=== PATIENT | female | born 1995 | race Caucasian/White ===

== ENCOUNTER 2017-09-17 07:29 | Emergency (ER) | payer MEDICAID ==
[~2017-09-17] VITALS: Ht 160 cm; Wt 64.0 kg
[~2017-09-17 07:29] MED LIST: CEPH500C5 PO; CYCL-1 PO; FAMO-129; IBUP-1985 PO; LIDO700A5 TOP; NITR100C6 PO; NORE-39 PO; ONDA4TAB6 PO; PHEN-873 PO
[2017-09-17 08:12] LABS: URINE HCG NEGATIVE (NEG)
[2017-09-17] MEDS ORDERED: HYDROcodone/acetaminophen 5mg/325mg tablet PO ONE (08:15)
[2017-09-17 08:20] LABS: CLARITY,URINE CLOUDY (Clear); COLOR,URINE YELLOW (Yellow); GLUCOSE, URINE NEGATIVE (Neg); KETONES,URINE NEGATIVE (Neg); LEUKOCYTE ESTERASE ,URINE MODERATE (Neg); NITRITES, URINE NEGATIVE (Neg); OCCULT BLOOD,URINE LARGE (Neg); PH,URINE 5.5 (4.8-8.0); PROTEIN,URINE 30 mg/dl (Neg); UROBILINOGEN,URINE 0.2 E.U/dL (0.2-1.0)
[2017-09-17 08:26] LABS: UA COLLECTION TYPE CLN CATCH MIDSTREAM; WBC,URINE TNTC /HPF (0-4)
[2017-09-17 08:27] LABS: BACTERIA,URINE FEW /HPF (Neg); SQUAMOUS EPITHELIAL CELL,UR MODERATE /LPF (FEW)
[2017-09-17 08:28] LABS: MUCUS STRANDS FEW /LPF (Neg)
[2017-09-17] MEDS ORDERED: ondansetron 4mg rapidly disintigrating tab PO ONE (10:00)
[2017-09-17 10:26] VITALS: BP 112/58
[2017-09-17] MEDS ORDERED: HYDR-3965 PO (10:38)
[2017-09-17] MEDS ORDERED: CIPR-230 PO (10:38)
[2017-09-17] MEDS ORDERED: cefTRIAXone 1g/NS 100ml IVPB 100 ML IV ONE (10:40)
== END 2017-09-17 11:32 | disposition home or self-care (01) ==
LOC: ER 07:30
DX: N10 Acute pyelonephritis (principal); F12.10 Cannabis abuse, uncomplicated; G89.29 Other chronic pain; Z79.899 Other long term (current) drug therapy; Z88.2 Allergy status to sulfonamides
CPT/HCPCS: 76775; 81001; 81025; 87088; 96365; 99285; J0696; 96374

== ENCOUNTER 2018-04-20 20:00 | Emergency (ER) | payer MEDICAID ==
[~2018-04-20] VITALS: Ht 160 cm; Wt 70.7 kg
[~2018-04-20 20:00] MED LIST changes: -CEPH500C5 PO
[2018-04-20 21:08] LABS: BASOPHILS % (AUTO) 0.1 % (0-1); EOSINOPHILS # (AUTO) 0.2 X10'3 (0-0.9); EOSINOPHILS % (AUTO) 1.7 % (0-6); HEMATOCRIT 40.8 % (35.0-45.0); HEMOGLOBIN 14.1 g/dl (12.0-16.0); LYMPHOCYTES % (AUTO) 20.2 % (21-51); MEAN CORPUSCULAR HEMOGLOBIN 30.3 PG (27.0-31.0); MEAN CORPUSCULAR HGB CONC 34.6 % (33.0-36.5); MEAN CORPUSCULAR VOLUME 87.5 FL (78-98); MEAN PLATELET VOLUME 7.7 FL (7.4-10.4); MONOCYTES # (AUTO) 0.7 X10'3 (0-0.9); MONOCYTES % (AUTO) 7.1 % (2-12); NEUTROPHILS % (AUTO) 70.9 % (42-75); PLATELET COUNT 279 X10'3 (140-440); RED BLOOD COUNT 4.67 X10'6 (4.20-5.60); RED CELL DISTRIBUTION WIDTH 12.5 % (11.5-14.5); WHITE BLOOD COUNT 9.9 X10'3 (4.5-11.0)
[2018-04-20 21:32] LABS: D-DIMER 0.27 MG/L FEU (0-0.50); PARTIAL THROMBOPLASTIN TIME 27 SECONDS (22-32)
[2018-04-20 21:36] LABS: ALANINE AMINOTRANSFERASE 27 U/L (12-78); ALBUMIN 4.2 G/DL (3.4-5.0); ALBUMIN/GLOBULIN RATIO 1.2 (1.1-1.5); ALKALINE PHOSPHATASE 62 IU/L (20-180); ANION GAP 10 (8-16); ASPARTATE AMINO TRANSFERASE 16 U/L (10-37); BILIRUBIN,TOTAL 0.3 MG/DL (0.1-1.0); BLOOD UREA NITROGEN 12 MG/DL (7-18); CALCIUM 9.2 MG/DL (8.5-10.1); CHLORIDE 103 MMOL/L (99-107); GLUCOSE 89 MG/DL (70-104); SODIUM 139 MMOL/L (135-145); TOTAL CARBON DIOXIDE 25.9 MMOL/L (24-32); TOTAL PROTEIN 7.8 G/DL (6.4-8.2); eGFR > 90 ML/MIN
[2018-04-20 21:52] VITALS: BP 109/70
== END 2018-04-20 21:53 | disposition home or self-care (01) ==
LOC: ER 20:01
DX: R07.89 Other chest pain (principal); F41.9 Anxiety disorder, unspecified; G89.29 Other chronic pain; F12.90 Cannabis use, unspecified, uncomplicated; F17.200 Nicotine dependence, unspecified, uncomplicated; Z88.2 Allergy status to sulfonamides; Z79.899 Other long term (current) drug therapy
CPT/HCPCS: 36415; 71045; 80053; 84484; 85025; 85379; 85610; 85730; 93005; 99285

== ENCOUNTER 2018-08-03 23:18 | Emergency (ER) | payer MEDICAID ==
[~2018-08-03] VITALS: Ht 162.6 cm; Wt 70.0 kg
[~2018-08-03 23:18] MED LIST changes: +PHEN-786 PO; -PHEN-873 PO
[2018-08-03 23:20] VITALS: BP 123/96
[2018-08-03 23:39] LABS: BASOPHILS % (AUTO) 0.2 % (0-1); EOSINOPHILS # (AUTO) 0.1 X10'3 (0-0.9); EOSINOPHILS % (AUTO) 0.8 % (0-6); HEMATOCRIT 44.2 % (35.0-45.0); HEMOGLOBIN 14.9 g/dl (12.0-16.0); LYMPHOCYTES # (AUTO) 2.9 X10'3 (1.1-4.8); LYMPHOCYTES % (AUTO) 22.7 % (21-51); MEAN CORPUSCULAR HEMOGLOBIN 29.7 PG (27.0-31.0); MEAN CORPUSCULAR HGB CONC 33.8 % (33.0-36.5); MEAN CORPUSCULAR VOLUME 87.7 FL (78-98); MEAN PLATELET VOLUME 7.4 FL (7.4-10.4); MONOCYTES % (AUTO) 7.7 % (2-12); NEUTROPHILS # (AUTO) 8.8 X10'3 (1.8-7.7); NEUTROPHILS % (AUTO) 68.6 % (42-75); PLATELET COUNT 361 X10'3 (140-440); RED BLOOD COUNT 5.04 X10'6 (4.20-5.60); RED CELL DISTRIBUTION WIDTH 12.9 % (11.5-14.5); WHITE BLOOD COUNT 12.8 X10'3 (4.5-11.0)
[2018-08-03] MEDS ORDERED: morphine 4 MG/ML inj SYRINge IV PRN (23:50)
[2018-08-03] MEDS ORDERED: ondansetron/PF 4mg/2ml inj IV ONE (23:50)
[2018-08-03] MEDS ORDERED: normal saline 1000ML IV soln IVB ONE (23:50)
[2018-08-03 23:53] LABS: PROTHROMBIN TIME 10.1 SECONDS (9.0-12.0)
[2018-08-03 23:55] LABS: ALANINE AMINOTRANSFERASE 25 U/L (12-78); ALBUMIN 4.8 G/DL (3.4-5.0); ALBUMIN/GLOBULIN RATIO 1.2 (1.1-1.5); ALKALINE PHOSPHATASE 72 IU/L (20-180); AMYLASE 74 U/L (25-115); ANION GAP 11 (8-16); ASPARTATE AMINO TRANSFERASE 14 U/L (10-37); BILIRUBIN,TOTAL 0.5 MG/DL (0.1-1.0); BLOOD UREA NITROGEN 11 MG/DL (7-18); BUN/CREATININE RATIO 15.3 (6.6-38.0); CALCIUM 9.9 MG/DL (8.5-10.1); CHLORIDE 103 MMOL/L (99-107); CREATININE 0.72 MG/DL (0.40-0.90); GLUCOSE 94 MG/DL (70-104); LIPASE 108 U/L (73-393); POTASSIUM 3.9 MMOL/L (3.5-5.1); SODIUM 140 MMOL/L (135-145); TOTAL CARBON DIOXIDE 26.1 MMOL/L (24-32); TOTAL PROTEIN 8.8 G/DL (6.4-8.2); eGFR > 90 ML/MIN
[2018-08-04 00:19] LABS: URINE HCG NEGATIVE (NEG)
[2018-08-04 00:26] LABS: CLARITY,URINE CLEAR (Clear); COLOR,URINE YELLOW (Yellow); GLUCOSE, URINE NEGATIVE (Neg); KETONES,URINE TRACE mg/dl (Neg); LEUKOCYTE ESTERASE ,URINE NEGATIVE (Neg); NITRITES, URINE NEGATIVE (Neg); OCCULT BLOOD,URINE MODERATE (Neg); PROTEIN,URINE NEGATIVE (Neg); UROBILINOGEN,URINE 0.2 E.U/dL (0.2-1.0)
[2018-08-04 00:29] LABS: UA COLLECTION TYPE CLN CATCH MIDSTREAM
[2018-08-04 00:44] LABS: BACTERIA,URINE 3+ /HPF (Neg); WBC,URINE 0-4 /HPF (0-4)
[2018-08-04 00:45] LABS: MUCUS STRANDS MANY /LPF (Neg); SQUAMOUS EPITHELIAL CELL,UR MODERATE /LPF (FEW)
[2018-08-04] MEDS ORDERED: CefTRIAXone/D5W-Rocephin 1gm 50 ML IV ONE (01:20)
[2018-08-04] MEDS ORDERED: CIPR-230 PO (01:22)
[2018-08-05 08:15] LABS: H PYLORI ANTIBODY NEGATIVE (Neg)
== END 2018-08-04 02:00 | disposition home or self-care (01) ==
LOC: ER 23:18
DX: N12 Tubulo-interstitial nephritis, not specified as acute or chronic (principal); R19.7 Diarrhea, unspecified; R10.13 Epigastric pain; R00.0 Tachycardia, unspecified; F12.90 Cannabis use, unspecified, uncomplicated; Z88.2 Allergy status to sulfonamides; Z79.899 Other long term (current) drug therapy; Z87.440 Personal history of urinary (tract) infections
CPT/HCPCS: 36415; 74176; 80053; 81001; 81025; 82150; 83690; 85025; 85610; 86677; 96361; 96365; 96375; 99284; J0696; J2270; J2405; J7030

== ENCOUNTER 2019-04-17 15:31 | Emergency (ER) | payer MEDICAID ==
[~2019-04-17] VITALS: Ht 162.6 cm; Wt 67.0 kg
[2019-04-17 15:32] VITALS: BP 129/79
[2019-04-17 16:28] LABS: CLARITY,URINE CLOUDY (Clear); COLOR,URINE YELLOW (Yellow); GLUCOSE, URINE NEGATIVE (Neg); KETONES,URINE NEGATIVE (Neg); LEUKOCYTE ESTERASE ,URINE NEGATIVE (Neg); NITRITES, URINE POSITIVE (Neg); OCCULT BLOOD,URINE TRACE-INTACT (Neg); PH,URINE 5.5 (4.8-8.0); PROTEIN,URINE TRACE mg/dl (Neg); UROBILINOGEN,URINE 0.2 E.U/dL (0.2-1.0)
[2019-04-17 16:29] LABS: UA COLLECTION TYPE CLN CATCH MIDSTREAM; URINE HCG NEGATIVE (NEG)
[2019-04-17] MEDS ORDERED: METH500T PO (16:32)
[2019-04-17] MEDS ORDERED: NITR100C6 PO (16:32)
[2019-04-17] MEDS ORDERED: ketorolac tromethamine 15mg/ml inj. IM ONE (16:35)
[2019-04-17 16:41] LABS: SQUAMOUS EPITHELIAL CELL,UR MANY /LPF (FEW)
[2019-04-17 16:42] LABS: MUCUS STRANDS MANY /LPF (Neg)
[2019-04-17 16:43] LABS: TRANSITIONAL EPI CELLS,URINE FEW /HPF
[2019-04-17 16:44] LABS: BACTERIA,URINE 4+ /HPF (Neg); RBC,URINE 0-2 /HPF (0-2); WBC,URINE 0-4 /HPF (0-4)
== END 2019-04-17 17:00 | disposition home or self-care (01) ==
LOC: ER 15:32
DX: S29.012A Strain of muscle and tendon of back wall of thorax, initial encounter (principal); N39.0 Urinary tract infection, site not specified; G89.29 Other chronic pain; F41.9 Anxiety disorder, unspecified; F12.90 Cannabis use, unspecified, uncomplicated; Z88.2 Allergy status to sulfonamides; Z79.899 Other long term (current) drug therapy; X58.XXXA Exposure to other specified factors, initial encounter; Y93.89 Activity, other specified; Y92.89 Other specified places as the place of occurrence of the external cause; Y99.8 Other external cause status
CPT/HCPCS: 81001; 81025; 96372; 99283; J1885

== ENCOUNTER 2019-05-21 14:24 | Emergency (ER) | payer MEDICAID ==
[~2019-05-21] VITALS: Ht 160 cm; Wt 67.7 kg
[~2019-05-21 14:24] MED LIST changes: +METH500T PO
[2019-05-21 14:59] VITALS: BP 156/94
[2019-05-21 15:49] LABS: CLARITY,URINE SLIGHTLY CLOUDY (Clear); COLOR,URINE YELLOW (Yellow); GLUCOSE, URINE NEGATIVE (Neg); KETONES,URINE NEGATIVE (Neg); LEUKOCYTE ESTERASE ,URINE NEGATIVE (Neg); NITRITES, URINE NEGATIVE (Neg); OCCULT BLOOD,URINE LARGE (Neg); PROTEIN,URINE NEGATIVE (Neg); URINE HCG NEGATIVE (NEG); UROBILINOGEN,URINE 0.2 E.U/dL (0.2-1.0)
[2019-05-21 15:50] LABS: UA COLLECTION TYPE CLN CATCH MIDSTREAM
[2019-05-21 15:57] LABS: BASOPHILS % (AUTO) 0.4 % (0-1); EOSINOPHILS # (AUTO) 0.1 X10'3 (0-0.9); EOSINOPHILS % (AUTO) 0.8 % (0-6); HEMOGLOBIN 14.3 g/dl (12.0-16.0); LYMPHOCYTES # (AUTO) 2.2 X10'3 (1.1-4.8); LYMPHOCYTES % (AUTO) 23.2 % (21-51); MEAN CORPUSCULAR VOLUME 88.3 FL (78-98); MEAN PLATELET VOLUME 7.8 FL (7.4-10.4); MONOCYTES # (AUTO) 0.7 X10'3 (0-0.9); MONOCYTES % (AUTO) 7.5 % (2-12); NEUTROPHILS # (AUTO) 6.6 X10'3 (1.8-7.7); NEUTROPHILS % (AUTO) 68.1 % (42-75); PLATELET COUNT 294 X10'3 (140-440); RED BLOOD COUNT 4.75 X10'6 (4.20-5.60); RED CELL DISTRIBUTION WIDTH 12.9 % (11.5-14.5); WHITE BLOOD COUNT 9.6 X10'3 (4.5-11.0)
[2019-05-21] MEDS ORDERED: ketorolac trometh inj. 60 MG/2 ML VIAL IM ONE (16:00)
[2019-05-21] MEDS ORDERED: acetaminophen 325mg tablet PO ONE (16:00)
[2019-05-21 16:02] LABS: SQUAMOUS EPITHELIAL CELL,UR MANY /LPF (FEW)
[2019-05-21 16:03] LABS: MUCUS STRANDS MODERATE /LPF (Neg)
[2019-05-21 16:04] LABS: RBC,URINE 0-2 /HPF (0-2); WBC,URINE 0-4 /HPF (0-4)
[2019-05-21 16:05] LABS: BACTERIA,URINE 1+ /HPF (Neg)
[2019-05-21 16:06] LABS: CAL OXALATE CRYSTALS FEW /HPF (NEGATIVE)
[2019-05-21 16:20] LABS: ALANINE AMINOTRANSFERASE 28 U/L (12-78); ALBUMIN 4.4 G/DL (3.4-5.0); ALBUMIN/GLOBULIN RATIO 1.1 (1.1-1.5); ALKALINE PHOSPHATASE 45 IU/L (46-116); ANION GAP 12 (8-16); ASPARTATE AMINO TRANSFERASE 18 U/L (10-37); BILIRUBIN,TOTAL 0.3 MG/DL (0.1-1.0); BLOOD UREA NITROGEN 11 MG/DL (7-18); BUN/CREATININE RATIO 17.7 (6.6-38.0); CALCIUM 9.5 MG/DL (8.5-10.1); CHLORIDE 104 MMOL/L (99-107); CREATININE 0.62 MG/DL (0.40-0.90); GLUCOSE 80 MG/DL (70-104); POTASSIUM 3.8 MMOL/L (3.5-5.1); SODIUM 141 MMOL/L (135-145); TOTAL CARBON DIOXIDE 25.1 MMOL/L (24-32); TOTAL PROTEIN 8.3 G/DL (6.4-8.2); eGFR > 90 ML/MIN
== END 2019-05-21 16:50 | disposition home or self-care (01) ==
LOC: ER 14:25
DX: N92.0 Excessive and frequent menstruation with regular cycle (principal); G89.29 Other chronic pain; M54.9 Dorsalgia, unspecified; F41.9 Anxiety disorder, unspecified; F12.90 Cannabis use, unspecified, uncomplicated; Z88.2 Allergy status to sulfonamides
CPT/HCPCS: 36415; 80053; 81001; 81025; 85025; 85610; 96372; 99283; J1885

== ENCOUNTER 2022-09-04 16:38 | Emergency (ER) | payer BC, MEDICAID ==
[~2022-09-04] VITALS: Ht 162.6 cm; Wt 63.0 kg
[2022-09-04 18:56] VITALS: BP 113/84
[2022-09-04 19:49] LABS: BASOPHILS # (AUTO) 0.1 X10'3 (0-0.2); BASOPHILS % (AUTO) 0.6 % (0-1); EOSINOPHILS # (AUTO) 0.2 X10'3 (0-0.9); EOSINOPHILS % (AUTO) 1.7 % (0-6); HEMATOCRIT 36.7 % (35.0-45.0); HEMOGLOBIN 12.5 g/dl (12.0-16.0); LYMPHOCYTES # (AUTO) 2.3 X10'3 (1.1-4.8); LYMPHOCYTES % (AUTO) 23.6 % (21-51); MEAN CORPUSCULAR HEMOGLOBIN 30.4 PG (27.0-31.0); MEAN CORPUSCULAR HGB CONC 33.9 g/dL (33.0-36.5); MEAN CORPUSCULAR VOLUME 89.5 FL (78-98); MEAN PLATELET VOLUME 7.1 FL (7.4-10.4); MONOCYTES # (AUTO) 0.7 X10'3 (0-0.9); MONOCYTES % (AUTO) 7.7 % (2-12); NEUTROPHILS # (AUTO) 6.4 X10'3 (1.8-7.7); NEUTROPHILS % (AUTO) 66.4 % (42-75); PLATELET COUNT 276 X10'3 (140-440); RED CELL DISTRIBUTION WIDTH 12.5 % (11.5-14.5); WHITE BLOOD COUNT 9.6 X10'3 (4.5-11.0)
[2022-09-04 20:11] LABS: URINE HCG NEGATIVE (NEG)
[2022-09-04 20:13] LABS: CLARITY,URINE SLIGHTLY CLOUDY (Clear); COLOR,URINE YELLOW (Yellow); GLUCOSE, URINE NEGATIVE (Neg); KETONES,URINE TRACE mg/dl (Neg); LEUKOCYTE ESTERASE ,URINE NEGATIVE (Neg); NITRITES, URINE NEGATIVE (Neg); OCCULT BLOOD,URINE TRACE-INTACT (Neg); PROTEIN,URINE NEGATIVE (Neg); UROBILINOGEN,URINE 0.2 E.U/dL (0.2-1.0)
[2022-09-04 20:19] LABS: UA COLLECTION TYPE CLN CATCH MIDSTREAM
[2022-09-04 20:20] LABS: WBC,URINE 0-4 /HPF (0-4)
[2022-09-04 20:21] LABS: BACTERIA,URINE 2+ /HPF (Neg); MUCUS STRANDS FEW /LPF (Neg); SQUAMOUS EPITHELIAL CELL,UR MANY /LPF (FEW)
== END 2022-09-04 20:14 | disposition home or self-care (01) ==
LOC: ER 16:39
DX: Z00.00 Encounter for general adult medical examination without abnormal findings (principal); G89.29 Other chronic pain; F41.9 Anxiety disorder, unspecified; F12.90 Cannabis use, unspecified, uncomplicated; Z88.2 Allergy status to sulfonamides; Z79.899 Other long term (current) drug therapy
CPT/HCPCS: 36415; 76856; 81001; 81025; 85025; 93976; 99284

== ENCOUNTER 2025-03-17 13:12 | Emergency (ER) | payer BC ==
[~2025-03-17] VITALS: Ht 162.6 cm; Wt 55.2 kg
[2025-03-17 13:22] VITALS: TEMP 98.3
--- NOTE | 2025-03-17 14:01 | Physician Documentation ---
History of Present Illness ~ Chief Complaint: Flu Symptoms Stated Complaint: MED REACTION Time Seen by MD: 13:42 Primary Medical Doctor: dr montana Source: patient Mode of Arrival: POV Exam Limitations: no limitations HPI Chief Complaint: Body aches, headache Caveat: None Independent Historians: None History of Present Illness: Patient is a 29-year-old woman comes in complaining of diffuse body aches, sweats and chills, headache. Patient has started to feel ill on March 12. Two days after starting Aegis on March 10 for her endometriosis. Patient's symptoms have gotten progressively worse. No nausea or vomiting. No chest pain, no shortness a breath, no cough, no abdominal pain. Patient has had diarrhea yesterday and this morning. Multiple episodes. No documented fever. Patient also had a mild sore throat two days ago that she attributed to the smoke. Patient took Motrin earlier with a little relief with her symptoms. Review of systems: All systems were reviewed and are negative except for what is indicated in the history of present illness. Past Medical History: Endometriosis Past Surgical History: None Social History: No tobacco use, no alcohol use, no drug use Medications: Reviewed as documented Nursing Notes Allergies: Reviewed as documented in Nursing Notes Medication Reconciliation Allergies: Coded Allergies: Sulfa (Sulfonamide Antibiotics) (Unverified Allergy, Unknown, 03/17/25) Scheduled Famotidine (Pepcid), AC, (Reported) Ibuprofen (Ibuprofen), 1 TAB PO Q6H Lidocaine (Lidoderm), 1 PATCH TOP DAILY Methocarbamol (Robaxin), 1 TAB PO HS Nitrofurantoin Monohyd/M-Cryst (Macrobid 100 mg Capsule), 1 CAP PO Q12H Nitrofurantoin Monohyd/M-Cryst (Macrobid 100 mg Capsule), 1 CAP PO Q12H Norethindrone A-E Estradiol (Gildess), 1 PO DAILY, (Reported) Scheduled PRN Cyclobenzaprine* (Cyclobenzaprine*), 1 TABLET PO Q8H PRN for muscle spasms Ondansetron Hcl (Zofran), 1 TABLET PO Q6H PRN for nausea/vomiting Phenazopyridine Hcl (Pyridium tablet), 1 TAB PO Q8H PRN for bladder spasms Past Medical History Past Medical History: UTI, Chronic Back Pain, Anxiety Past Surgical History: no surgical history Alcohol Use: None Drug Use: marijuana Lives with: Mother Lives In: Home Occupation: student Review of Systems All Other Systems at this time: Reviewed and Negative ROS Patient denies any other acute symptoms other than above. All other systems are negative Physical Exam Vital Signs: RN Vital Signs have been reviewed: Yes, Temperature: 98.3, Source: Temporal, Heart Rate: 75, Respiratory Rate: 18, BP: 138/87, Pulse Oximetry: 98, Weight: 55.250 Pulse Oximetry Reflects: adequate oxygenation Physical Exam General Appearance: No distress but tearful HEENT: Normal OP, moist oral mucosa, PERRL, EOMI Neck: supple, normal ROM, trachea midline Pulmonary: No respiratory distress, CTA, BS equal Cardiac: RRR, no murmur, rub or gallop, GI: nondistended, soft, nontender, normal bowel sounds, no guarding, no rebound Extremities: normal ROM, no swelling, non-tender Skin: intact, dry, warm, no rashes Neuro: AAOx3, speech is clear, no focal motor weakness Psych: normal affect, good eye contact, no apparent hallucination, normal speech Progress Results/Orders Results/Orders Completed Orders - CHIQUITA ALMAZAN MD Cbc/Diff (03/17/25 13:55) Hcg, Ur Ql (03/17/25 13:55) Procalcitonin (03/17/25 13:55) BMP (03/17/25 13:55) Ua W/Microscopic, Cult If Ind (03/17/25 14:15) Vital Signs 03/17/25 03/17/25 13:22 15:34 Temp 98.3 Pulse 75 88 Resp 18 16 B/P (MAP) 138/87 112/77 (89) Pulse Ox 98 98 O2 Flow Rate 0 Laboratory Tests Test 03/17/25 14:13 03/17/25 14:15 03/17/25 14:22 SARS-CoV-2 Antigen (Rapid) Positive *A Urine Specimen Description Cln catch midstream Urine Color Yellow Urine Clarity Slightly cloudy Urine pH 6.5 Urine Specific Dunbar 1.025 Urine Protein Negative Urine Glucose (UA) Negative Urine Ketones 40 H Urine Occult Blood Negative Urine Nitrite Negative Urine Bilirubin Negative Urine Urobilinogen 0.2 Urine Leukocyte Esterase Negative Urine RBC 3-10 Urine WBC 0-4 Urine Squamous Epithelial Cells Many Urine Transitional Epithelial Cells Few Urine Bacteria 2+ Urine Culture Indicated Not ind Volume Urine Centrifuged 10 ml Urine HCG, Qualitative Negative Urine Comment White Blood Count 5.7 Red Blood Count 4.16 L Hemoglobin 12.6 Hematocrit 36.9 Mean Corpuscular Volume 88.7 Mean Corpuscular Hemoglobin 30.3 Mean Corpuscular Hemoglobin Concent 34.2 Red Cell Distribution Width 13.1 Platelet Count 219 Mean Platelet Volume 7.6 Neutrophils (%) (Auto) 65.9 Lymphocytes (%) (Auto) 19.3 L Monocytes (%) (Auto) 14.2 H Eosinophils (%) (Auto) 0.2 Basophils (%) (Auto) 0.4 Neutrophils # (Auto) 3.8 Lymphocytes # (Auto) 1.1 Monocytes # (Auto) 0.8 Eosinophils # (Auto) 0.0 Basophils # (Auto) 0.0 CBC Comment Sodium Level 136 Potassium Level 3.8 Chloride Level 104 Carbon Dioxide Level 26.0 Anion Gap 6 L Blood Urea Nitrogen 10 Creatinine 0.64 Estimated GFR/1.73 m2 > 90 BUN/Creatinine Ratio 15.6 Glucose Level 88 Calcium Level 8.7 Albumin 4.2 Procalcitonin < 0.05 Chemistry Comments Medical Decision Making Findings Differential diagnosis includes but is not limited to: Viral syndrome, medication side effect Laboratory data independent interpretation: CBC: Unremarkable CMP: Unremarkable Serology: COVID POSITIVE Urinalysis: Unremarkable, contaminated specimen Emergency department course/medical decision-making: Patient presents with multiple nonspecific symptoms that are likely secondary to a viral illness. Patient has an unremarkable physical exam. She has a normal cardiopulmonary exam and a normal abdominal exam. Patient does not appear dehydrated. Patient is afebrile and hemodynamically stable. Patient is found to have COVID. Patient does not require chest x-ray as she has a normal pulmonary exam, normal pulse ox and no respiratory symptoms. Patient is instructed to take Advil and Tylenol for pain. She is also instructed to take vitamin-C and vitamin-D. Patient is stable for discharge. Departure Time of Disposition: 15:30 Disposition: HOME / SELF CARE / HOMELESS Impression: Primary Impression: COVID-19 Condition: Stable Discharge Instructions: Viral Illness Additional Instructions: TAKE ADVIL AND TYLENOL FOR YOUR SYMPTOMS. RETURN TO THE ER IF YOUR SYMPTOMS WORSEN. RECOMMEND TAKING VITAMIN C AND VITAMIN D Departure Forms: Excuse form Work or School Excuse beginning now through the following date: Mar 23, 2025 Education Educated: Patient Educated regarding: diagnosis, treatment Signature Scribe Signature: No scribe Attestation: No scribe CHIQUITA ALMAZAN MD Mar 17, 2025 14:01
[2025-03-17 14:30] LABS: MEAN PLATELET VOLUME 7.6 FL (7.4-10.4); RED CELL DISTRIBUTION WIDTH 13.1 % (11.5-14.5)
[2025-03-17 14:31] LABS: LEUKOCYTE ESTERASE ,URINE NEGATIVE (Neg); NITRITES, URINE NEGATIVE (Neg); OCCULT BLOOD,URINE NEGATIVE (Neg)
[2025-03-17 14:32] LABS: UA COLLECTION TYPE CLN CATCH MIDSTREAM
[2025-03-17 14:34] LABS: URINE HCG NEGATIVE (NEG)
[2025-03-17 14:39] LABS: CREATININE 0.64 MG/DL (0.40-0.90); TOTAL CARBON DIOXIDE 26.0 MMOL/L (24-32); eCRCL 114 ML/MIN; eGFR > 90 ML/MIN
[2025-03-17 15:01] LABS: SQUAMOUS EPITHELIAL CELL,UR MANY /LPF (FEW)
[2025-03-17 15:34] VITALS: BP 112/77; PULSE 88; RESP 16; O2SAT 98
== END 2025-03-17 16:04 | disposition home or self-care (01) ==
LOC: ER 13:12
DX: U07.1 COVID-19 (principal); F41.9 Anxiety disorder, unspecified; F12.90 Cannabis use, unspecified, uncomplicated; Z88.2 Allergy status to sulfonamides; Z79.899 Other long term (current) drug therapy
CPT/HCPCS: 36415; 80048; 81001; 81025; 84145; 85025; 87811; 99283